=== PATIENT | female | born 1985 | race Caucasian/White ===

== ENCOUNTER 2017-04-27 09:01 | Day surgery (SDC) | payer MEDICAID, OTHER ==
--- NOTE | 2017-04-24 00:51 | PREOPHP ---
DATE OF ADMISSION: 04/27/2017 The patient is coming for surgery for 04/27/2017. HISTORY OF PRESENT ILLNESS: This is a 31 years old female 2, para 2. The patient had seen me with a history of having a right vulvar abscess. The patient had seen me before for problems wit h periods and with problems for a Paragard IUD. The patient had been seen for a Bartholin's cyst th at was at the time about 6 cm in diameter. The patient also was diagnosed with a right paraurethral cyst with a history of dyspareunia, right Bartholin cyst, right paraurethral cyst. She is undergoi ng a right Bartholin cystectomy and right paraurethral cystectomy. PAST MEDICAL HISTORY: Unremarkable. ALLERGIES: SHE HAS NO ALLERGIES. MEDICATIONS: She is on no medication. FAMILY HISTORY: Diabetes. REVIEW OF SYSTEMS: Negative for cardiovascular disease. Negative for lung disease, neurological, o rthopedic, endocrine disease and no history of drugs. SOCIAL HISTORY: She does not drink or smoke, and family history is for diabetes on her grandmother. PHYSICAL EXAMINATION: VITAL SIGNS: Stable. Blood pressure is 90/60. She weighs 138. She is 5 feet 5 inches. HEAD AND NECK: Normal. BREASTS: Soft, nontender, no masses. CHEST: Clear. HEART: Normal sinus rhythm. LUNGS: Clear. BACK: Normal. ABDOMEN: Soft, nontender, no masses. GENITALIA: With a right Bartholin cyst about 6 cm in diameter and also with a right paraurethral cy st that is ____ with the right Bartholin cyst. The cervix with an IUD that is visible. Uterus retr overted, flexed, mobile, nontender. Adnexa are negative. DIAGNOSES: 1. Right Bartholin cyst. 2. Right paraurethral cyst. 3. Dyspareunia. 4. IUD in situ. PLAN: She is undergoing an excision of right Bartholin cyst and also excision of right paraurethral cyst. She has been advised of the possible risks and possible complications of the procedure with her alternatives and options. Written information was provided. She had no more questions and agre ed to go ahead with the procedure with full understanding and no more questions. Dictated By: JACI LAZAR/ZOILA Conf#: [id number] [facility]#: [id number]
[2017-04-27] VITALS (12 sets, daily range): BP systolic 98–116; BP diastolic 47–73; PULSE 48–68; RESP 12–20; Ht 165.1 cm; Wt 60.2 kg
[~2017-04-27] VITALS: Ht 165.1 cm; Wt 60.2 kg
[2017-04-27] MEDS ORDERED: BUPIVACAINE 0.5%/EPI (SDV) 30 ML INJ ONE (11:04)
[2017-04-27] MEDS ORDERED: FENTAnyl 50 MCG/ML VIAL ONE (11:25)
[2017-04-27] MEDS ORDERED: PROPOFOL 20 ML ONE (11:25)
[2017-04-27] MEDS ORDERED: MIDAZOLAM 1 MG/ML 2 ML INJ ONE (11:26)
[2017-04-27] MEDS ORDERED: METOCLOPRAMIDE 10 MG INJ ONE (11:26)
[2017-04-27] MEDS ORDERED: KETOROLAC 30 MG INJ ONE (11:26)
[2017-04-27] MEDS ORDERED: ONDANSETRON 4 MG INJ ONE (11:26)
--- NOTE | 2017-04-27 11:28 | HPN ---
Date/Time of Note Date/Time of Note DATE: 04/27/17 TIME: 11:28 Interval H&P Admission Note Pt. seen H&P reviewed: No system changes JACI LR MD Apr 27, 2017 11:28
[2017-04-27] MEDS ORDERED: CEFAZOLIN 1 GM INJ ONE (11:41)
[2017-04-27] MEDS ORDERED: DIPHENHYDRAMINE 50 MG INJ IV PRN (12:30)
[2017-04-27] MEDS ORDERED: OXYCODONE/ACETAMINOPHEN (5/325) TAB PO PRN ×2 (12:30)
[2017-04-27] MEDS ORDERED: ONDANSETRON 4 MG INJ IV PRN (12:30)
[2017-04-27] MEDS ORDERED: HYDROmorphONE (0.2 MG/ML) 10ML SYG IV PRN ×3 (12:30)
[2017-04-27] MEDS ORDERED: MEPERIDINE 25 MG INJ IV PRN (12:30)
--- NOTE | 2017-04-27 13:07 | PD.PPDC ---
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
--- NOTE | 2017-04-27 13:17 | SIPON ---
Date/Time of Note Date/Time of Note DATE: 04/27/17 TIME: 13:13 Operative Report Preoperative Diagnosis Right large vaginal cyst lateral wall Right large paraurethral cyst Left large paraurethral cyst Dyspareunia Right Bartholin cyst Postoperative Diagnosis Same Operation/Procedure Performed Right large vaginal cystectomy Large paraurethral cystectomy Left paraurethral cystectomy Surgeon see signature line surgical services assistant None Anesthesia: general Estimated blood loss: 150 - 200 ml's Transfusion Required none Specimen Right and left paraurethral cyst Right vaginal wall cyst Grafts/Implants none Complications none JACI LR MD Apr 27, 2017 13:17
[2017-04-27] MEDS ORDERED: HYDROCODONE/APAP (5/325) TAB PO PRN ×2 (13:30)
[2017-04-27] MEDS ORDERED: KETOROLAC 30 MG INJ IV PRN (13:30)
--- NOTE | 2017-04-27 15:10 | OPR ---
DATE OF OPERATION: 04/27/2017 PROCEDURES: 1. Right vaginal wall cystectomy. 2. Right periurethral cystectomy. 3. Left periurethral cystectomy. PREOPERATIVE DIAGNOSES: Dyspareunia, right Bartholin cyst, right paraurethral cyst large. POSTOPERATIVE DIAGNOSIS: Dyspareunia, right Bartholin cyst, right paraurethral cyst large plus righ t large vaginal lateral wall cyst and left paraurethral wall cyst and right paraurethral wall cyst, possible embryologic cyst. SURGEON: Dr. Pearson. APPARATUS LINEMAN: None. ANESTHESIA: General. Dr. Brice. COMPLICATIONS: None. PROCEDURE: The patient was given general anesthesia, placed in the lithotomy position. The Tracey c atheter was placed in the bladder. The examination under anesthesia revealed that there was a very large cyst on the lateral vaginal wall that was joined to a right paraurethral cyst and also to the Bartholin's cyst area. The perineal incision was made at the skin vaginal mucosal junction vertical ly for about 10 cm and the cyst was shelled off. The large vaginal vault cyst was very large and at the level of the junction with the paraurethral cyst. The cyst ruptured and pus came off. All the cyst wall was removed and there was very active bleeding underneath and interrupted sutures of 0 Vi cryl were placed deeply on the lateral wall of the vagina for bleeding control. Three layers of sti tches deep in the vaginal lateral wall to control the bleeding and then a second layer and the third layer was a submucosa to be reattached to the skin area on the right labial junction. The hemostas is was good. 3-0 Vicryl was also used. We used #0 Vicryl, 2-0 Vicryl and 3-0 Vicryl. The right pa raurethral cyst was shelled off after injection of Marcaine and epinephrine that was given laterally to the urethral area, periurethral area. A midline incision was made on top of the cyst on the muc osal area. The incision was about 5 cm vertically. The cyst was shelled off. The cyst approached the urethral area up to the meatus of the urethra and the cyst was removed. The base of the area wa s closed with interrupted sutures with 2-0 Vicryl due to active bleeding that was controlled with in terrupted sutures. This was done in 3 layers. Again, two layers deep and the superficial layer was the mucosa of the vagina at the periurethral area. Finally, hemostasis was achieved in the whole a andrew and injection with Marcaine solution was also injected in the area for control of bleeding. The cavity was cleaned out. The Tracey was removed with drainage of clear urine. The patient tolerated the procedure well and left the OR awake and stable. Sponge counts, instrument counts were correct and intravenous antibiotics were given for prophylaxis. Blood loss was about 250 mL. The urine wa s clear. Dictated By: JACI LAZAR/ZOILA Conf#: [id number] DID#: [id number]
--- NOTE | 2017-05-01 21:43 | RADRPT ---
Vent Rate: 51 bpm RR Interval: 0 msec NC Interval: 154 msec QRS Duration: 82 msec QT Interval: 444 msec QTC Interval: 409 msec P-R-T [place]: 14 - 42 - 40 degrees Sinus bradycardia Otherwise normal ECG No previous tracing available for comparison Electronically Signed By: Eron Mccoy [id number]
== END 2017-04-27 15:35 | disposition home or self-care (01) ==
LOC: SDS 09:01
PROVIDERS: ATTEND Obstetrics & Gynecology
DX: N75.0 Cyst of Bartholin's gland (principal); N36.8 Other specified disorders of urethra; N89.8 Other specified noninflammatory disorders of vagina; N94.10 Unspecified dyspareunia; Z97.5 Presence of (intrauterine) contraceptive device
CPT/HCPCS: 56740; 57135; 88304; 93005; J0690; J1885; J2175; J2250; J2405; J2765; J3010; Z7512; Z7610